=== PATIENT | male | born 1940 | race Native Hawaiian/Other Pacific Islander ===

== ENCOUNTER 2020-10-23 19:55 | Emergency (ER) | payer OTHER ==
[~2020-10-23] VITALS: Ht 177.8 cm; Wt 64.4 kg
[2020-10-23 19:55] VITALS: BP 115/38; TEMP 97.7
[2020-10-23 20:15] LABS: PLATELET COUNT 257 K/uL (142-355)
[2020-10-24] MEDS ORDERED: KLOR-CON SPRIN10 MEQ PO (00:34)
[2020-10-24] MEDS ORDERED: METO25TA2 PO (00:35)
[2020-10-24] MEDS ORDERED: FINA5TAB2 PO (00:37)
[2020-10-24] MEDS ORDERED: EZET10TA13 PO (00:38)
[2020-10-24] MEDS ORDERED: ESCITALOPRAM5 MG PO (00:40)
[2020-10-24] MEDS ORDERED: ALEN70TA19 PO (00:43)
[2020-10-24] MEDS ORDERED: FURO40TA93 PO (00:45)
[2020-10-24] MEDS ORDERED: PRESERVISION (00:47)
[2020-10-24] MEDS ORDERED: PHENYTOIN EX200 MG PO (00:48)
[2020-10-24] MEDS ORDERED: FEROSUL325 MG PO (00:49)
[2020-10-24] MEDS ORDERED: CARBAMAZEPIN200 MG PO (00:50)
[2020-10-24] MEDS ORDERED: TRAZ50TA36 PO (00:51)
[2020-10-24] MEDS ORDERED: PEPCID20 MG PO (00:52)
[2020-10-24] MEDS ORDERED: INCRUSE EL62.5 MCG/I INH (00:53)
[2020-10-24] MEDS ORDERED: FLUTMIS6 INH (00:55)
[2020-10-24] MEDS ORDERED: BUSPIRONE HYDR7.5 MG PO (00:56)
[2020-10-24] MEDS ORDERED: TRAMADOL HYDROC50 MG PO (01:00)
[2020-10-24] MEDS ORDERED: NEURONTIN 100M100 MG PO (01:01)
[2020-10-24] MEDS ORDERED: FOLIC ACID PO (01:02)
[2020-10-24] MEDS ORDERED: VIT-D PO (01:04)
[2020-10-24] MEDS ORDERED: OXYC5TAB24 PO (01:06)
[2020-10-24] MEDS ORDERED: MIRALAX17 GM PO (01:08)
[2020-10-24] MEDS ORDERED: DOK100 MG PO (01:10)
[2020-10-24] MEDS ORDERED: TYLENOL325 MG PO (01:11)
[2020-10-24] MEDS ORDERED: CRESTOR5 MG PO (01:13)
[2020-10-24] MEDS ORDERED: ALBUTEROL0.083 % INH (01:15)
[2020-10-24] MEDS ORDERED: OXYGEN NAS (01:17)
[2020-10-24] MEDS ORDERED: TAMS0.4C PO (01:29)
== END 2020-10-23 23:01 | disposition other institution (70) ==
LOC: ED 20:04
PROVIDERS: Family Medicine
DX: F41.8 Other specified anxiety disorders (principal); F32.89 Other specified depressive episodes; I50.9 Heart failure, unspecified; Z11.52 Encounter for screening for COVID-19; Z04.6 Encounter for general psychiatric examination, requested by authority
CPT/HCPCS: 36415; 80053; 85027; 87635; 93005; 99283; U0003

== ENCOUNTER 2020-11-07 10:45 | Inpatient (IN) | payer OTHER ==
[~2020-11-07] VITALS: Ht 172.7 cm; Wt 64.4 kg
[~2020-11-07 10:45] MED LIST: ALBUTEROL0.083 % INH; ALEN70TA19 PO; BUSPIRONE HYDR7.5 MG PO; CARBAMAZEPIN200 MG PO; CRESTOR5 MG PO; DOK100 MG PO; ESCITALOPRAM5 MG PO; EZET10TA13 PO; FEROSUL325 MG PO; FINA5TAB2 PO; FLUTMIS6 INH; FOLIC ACID PO; FURO40TA93 PO; INCRUSE EL62.5 MCG/I INH; KLOR-CON SPRIN10 MEQ PO; METO25TA2 PO; MIRALAX17 GM PO; NEURONTIN 100M100 MG PO; OXYC5TAB24 PO; OXYGEN NAS; PEPCID20 MG PO; PHENYTOIN EX200 MG PO; PRESERVISION; TAMS0.4C PO; TRAMADOL HYDROC50 MG PO; TRAZ50TA36 PO; TYLENOL325 MG PO; VIT-D PO
--- NOTE | 2020-11-14 05:52 | NUR ---
NURSING SERVICES CHANGED PT TO N/C @ 5 LPM.
--- NOTE | 2020-11-15 07:34 | NUR ---
PATIENT NOTED AGITATED WITH INCREASED RESPIRATIONS IN THE UPPER 20'S. PATIENT CONTINUES TO REMOVE NONREBREATHER DESPITE REDIRECTION. PATIENT IS CONFUSED. PATIENT PLACED ON 6 LPM NC TO SEE IF HE WOULD TOLERATE IT BETTER THEN THE MASK. PATIENT CURRENTLY SPO2 94%.
--- NOTE | 2020-11-15 08:12 | NUR ---
PATIENT NOTED WITH INCREASED RR-30'S WITH INCREASED WORKFORCE OF BREATHING. NC REMOVED AND NON REBREATHER PLACED BACK AT THIS TIME. PATIENTS CURRENT SPO2 RANGED IN THE 70'S. HERE AND NOTIFIED ABOUT CHANGE. NO FURTHER ORDERS WERE GIVEN. DAUGHTER LANA RILEY WAS CALLED AND NOTIFIED ABOUT CHANGED SHE STATED " I WILL BE THERE IN 5 MINUTES". WILL CONTINUE TO MONITOR PATIENT.
--- NOTE | 2020-11-15 08:25 | NUR ---
DAUGHTER LANA IS AT THE BEDSIDE AT THIS TIME.
--- NOTE | 2020-11-15 08:52 | NUR ---
PATIENT NOTED WITH INCREASED WORKFORCE OF BREATHING RR-36 AND SPO2 92% PATIENT GIVEN 1 MG OF MORPHINE FOR PAIN AND AGITATION.
--- NOTE | 2020-11-15 09:23 | NUR ---
PATIENT WAS NOTED NOT BREATHING, PUPILS FIXED AND DILATED. PROUNCED PATIENT AT THIS TIME. NEXT OF KIN NOTIFIED.
--- NOTE | 2020-11-15 09:30 | NUR ---
DAUGHTER HERE AT THE BEDSIDE. [facility] CONTACTED PER FAMILY REQUEST.
[2020-11-16 09:35] LABS: POTASSIUM 4.9 mmol/L (3.6-5.2)
[2020-11-16 09:36] LABS: PLATELET COUNT 268 K/uL (142-355)
[2020-11-16 10:01] LABS: PLATELET COUNT 208 K/uL (142-355)
[2020-11-16 10:02] LABS: POTASSIUM 4.4 mmol/L (3.6-5.2)
[2020-11-17 11:43] LABS: PLATELET COUNT 184 K/uL (142-355)
[2020-11-18 15:37] LABS: POTASSIUM 4.4 mmol/L (3.6-5.2)
[2020-11-18 15:38] LABS: PLATELET COUNT 169 K/uL (142-355)
[2020-11-18 16:14] LABS: POTASSIUM 4.5 mmol/L (3.6-5.2)
[2020-11-18 16:15] LABS: PLATELET COUNT 167 K/uL (142-355)
[2020-11-18 16:31] LABS: POTASSIUM 3.9 mmol/L (3.6-5.2)
[2020-11-18 16:32] LABS: PLATELET COUNT 180 K/uL (142-355)
== END 2020-11-15 09:23 | disposition expired | DRG 177 ==
LOC: MED/SURG 10:45
PROVIDERS: ADMIT Internal Medicine; ATTEND Internal Medicine
DX: J69.0 Pneumonitis due to inhalation of food and vomit (principal); J96.01 Acute respiratory failure with hypoxia; J44.1 Chronic obstructive pulmonary disease with (acute) exacerbation; G40.802 Other epilepsy, not intractable, without status epilepticus; N30.00 Acute cystitis without hematuria; N40.0 Benign prostatic hyperplasia without lower urinary tract symptoms; B96.89 Other specified bacterial agents as the cause of diseases classified elsewhere; I11.0 Hypertensive heart disease with heart failure; I50.9 Heart failure, unspecified; R13.19 Other dysphagia; I25.10 Atherosclerotic heart disease of native coronary artery without angina pectoris
CPT/HCPCS: 36415; 80048; 80053; 80202; 81000; 83605; 85027; 87040; 87070; 87635; 93005; 94640; 94664; 94760; C1726; J0132; J1650; J1940; J1956; J2060; J2270; J2543; J3370; J3486; J3490; U0003